=== PATIENT | male | born 1980 | race Caucasian/White ===

== ENCOUNTER → 2020-09-07 01:08 | Outpatient (CLI) | payer OTHER, SELFPAY ==
[2020-09-07 19:13] LABS: SARS-CoV-2 RNA PCR Negative
== END ==
PROVIDERS: Visit Provider Urology
DX: Z01.812 Encounter for preprocedural laboratory examination (principal); Z20.822 Contact with and (suspected) exposure to COVID-19
CPT/HCPCS: C9803; U0003; U0005

== ENCOUNTER 2020-09-10 00:12 | Day surgery (SDC) | payer OTHER, SELFPAY ==
[2020-08-29 09:54] VITALS: BMI 45.2
[2020-09-10] VITALS (9 sets, daily range): BP systolic 116–139; BP diastolic 64–89; PULSE 83–95; RESP 16–20; TEMP 36.1–36.6; O2SAT 95–100
--- NOTE | 2020-09-10 10:26 | ECG_ITS ---
Measurements Intervals [place] Rate: 86 P: 47 HI: 126 QRS: 45 QRSD: 101 T: 60 QT: 360 QTc: 432 Interpretive Statements SINUS RHYTHM BORDERLINE ST-T WAVE ABNORMALITY- INF/HIGH LAT LEADS BORDERLINE ECG Electronically Signed On 09-10-2020 11:05:28 CDT by Destin Mcgee D.O.
[2020-09-10] MEDS: LACTATED RINGERS 1,000 ML 30 ML IV CONT ×2 (11:10→13:42)
[2020-09-10 11:16] LABS: Glucose Point of Care 183 (65-105)
--- NOTE | 2020-09-10 11:44 | SUR.PREOP ---
1135-PT AND SIGNIFICANT OTHER AWARE SURGEON DELAYS SELF MINIMUM 30 MINUTES.
--- NOTE | 2020-09-10 12:12 | WPDHPUPDATE1 ---
History and Physical Update Update Date/Time: 09/10/20 12:12 History and Physical has been reviewed, including an updated exam of the patient. There are NO changes in the patient's condition. Risks, benefits, and alternatives have been discussed and questions answered. Patient agrees to proceed with procedure. Proceed with left hydrocelectomy
--- NOTE | 2020-09-10 12:23 | P.PNAN_ITS ---
Anes - Initial Pre Proc Eval Procedure: Operation Date: 09/10/20 12:30 Proposed Procedures p Left Hydrocelectomy, Possible Scrotal Exploration - Nicolas Norris MD Date/Time: 09/10/20 12:23 Surgeon: Nicolsa Norris MD Pre Op Diagnosis: left hydrocele Patient Data Age: 39 Gender: M Height: 5 ft 10 in Weight: 139.2 kg Last Vital Signs Temp 36.1 C L 09/10/20 10:28 Pulse 93 09/10/20 10:28 Resp 20 09/10/20 10:28 BP 139/89 09/10/20 10:28 Pulse Ox 98 09/10/20 10:28 Allergies Allergy/AdvReac Type Severity Reaction Status Date / Time No Known Allergies Allergy Verified 09/10/20 10:53 Home Medications Medication Instructions Recorded Confirmed Type empagliflozin [Jardiance] 25 mg PO DAILY 08/29/20 09/10/20 History lisinopril-hydrochlorothiazide 1 tablet PO DAILY 08/29/20 09/10/20 History Laboratory Tests 09/10/20 11:13 POC Capillary Glucose 183 mg/dl H mg/dl (65-105) Patient hx anesthesia problems: none Family hx anesthesia problems: none PMFSH Past Medical History Medical History (Updated 09/10/20 @ 12:26 by Leno Teague MD) HTN (hypertension) Morbid obesity Surgical History Surgical History (Updated 09/10/20 @ 12:26 by Leno Teague MD) History of knee surgery Social History Social History Smoking packs per day: 1 Smoking cigarettes per day: 20.0 Years smoked: 20 Smoking pack-years: 20.00 Smoking status: Former smoker Tobacco type: cigarettes Smoking end date: 08/02/20 Alcohol intake: former Drinks per week: 42 Alcohol use details: QUIT DRINKING 08/02/20 Substance use: never Substance use type: does not use Living arrangements: alone Spiritual care concerns: No Anes - Eval Final PreProcedure Day of Procedure 09/10/20 12:23 Patient weight: morbidly obese Heart: regular rate and rhythm Lungs: clear to auscultation Airway: Mallampati scale class II and other (no teeth) Neurological: alert and oriented Last oral intake: >/= 8 hours ASA classification: III Emergent: no Anesthetic plan: proceed Anesthesia type and monitoring: general LMA and standard monitoring Informed Consent: The patient's anesthetic plan and its attendant risks and benefits were discussed with the patient/family/POA. Questions were solicited a nd answers provided to the satisfaction of the patient/family/POA.
[2020-09-10] MEDS: ceFAZolin 3 GM/D5W 100 ML 100 ML IVPB (12:47)
[2020-09-10] MEDS: NEOMYCIN/POLYMYXIN/BACITRACIN OINTMENT 15 GM TUBE 1 APPLIC TOPICAL (13:32)
--- NOTE | 2020-09-10 13:38 | P.OP_ITS ---
Procedure Note - Detailed Date of procedure: 09/10/20 Pre-op diagnosis: left hydrocele Post-op diagnosis: same Procedure performed: Left hydrocelectomy, left orchiopexy Description of procedure: Patient is taken the operative suite and correctly identified. Once anesthesia was obtained was prepped and draped usual sterile fashion. Transverse incision was made in the left hemiscrotum carried down through the tunical layers. The hydrocele was then brought into the operative field. It was incised and drained of 320 cc of straw-colored fluid. The hydrocele sac was then excised. This is sent for analysis. We fulgurated the edges. The appendix testes was fulgurated also. Quarter-inch Beaufort drain was then placed through a separate stab incision. We went ahead and then did an orchiopexy to stabilize the testicle. We used 3 0 Ethibond in a 3 point stabilization. Suture was placed laterally, medially and inferiorly. [place] was then closed using 3 0 chromic in a running fashion. Skin was closed using 3 0 chromic in a running fashion. The incision was anesthetized using 1% lidocaine. Patient tolerated procedure well without any complications and is taken recovery stable condition. Anesthesia: GLMA and GETA Surgeon: Nicolas Norris MD Estimated blood loss (mL): 5 Drains: Yes Packing: No Pathology: yes Complications: No immediate complications Condition: stable Disposition: PACU
[2020-09-10 13:51] LABS: Glucose Point of Care 157 (65-105)
[2020-09-10] MEDS: fentaNYL CITRATE INJ (*CRX) 100 MCG/2 ML VIAL 25 MCG IV PUSH ×6 (13:54→14:26)
[2020-09-10] MEDS: oxyCODONE HCL (*CRX) 5 MG TAB IR PO (15:03)
== END 2020-09-10 15:35 | disposition home or self-care (01) ==
PROVIDERS: Visit Provider Urology
PROC: (CPT 55040; principal; 2020-09-10 12:30)
DX: N43.3 Hydrocele, unspecified (principal); I10 Essential (primary) hypertension; E11.9 Type 2 diabetes mellitus without complications; E66.01 Morbid (severe) obesity due to excess calories; Z68.41 Body mass index [BMI] 40.0-44.9, adult; Z87.891 Personal history of nicotine dependence; Z79.84 Long term (current) use of oral hypoglycemic drugs
CPT/HCPCS: 55040; 54640; 82948; 88302; 93005; A9270; C9803; J0690; J1100; J2250; J2405; J2704; J3010; J7120; U0003; U0005